=== PATIENT | male | born 1945 | race Caucasian/White ===

== ENCOUNTER → 2016-10-04 | Outpatient (CLI) | payer MEDICARE, OTHER | LOC: GMAJ 15:22 | PROVIDERS: ATTEND Family Medicine | DX: Z12.5 Encounter for screening for malignant neoplasm of prostate (principal) ==

== ENCOUNTER → 2017-01-09 | Outpatient (CLI) | payer MEDICARE, OTHER ==
--- NOTE | 2017-01-09 17:36 | MRI ---
EXAM DESCRIPTION: Lumbar Spine w/o Contrast CLINICAL HISTORY: INTERVERTEBRAL DISC DISPLACEMENT, LUMBOSACRAL REGION COMPARISON: None Available. TECHNIQUE: MRI of the lumbar spine is performed according to our usual protocol with axial and sagittal multi sequence imaging. FINDINGS: MR of the lumbar spine demonstrates moderate dextroscoliosis of the spine with tiny amount of retrolisthesis at the L4-5 level with multilevel advanced degenerative disc narrowing. A large upper pole and moderate lower pole left renal cyst is evident with additional smaller cysts noted on the right. No aortic aneurysm is seen and subcutaneous edema in the posterior soft tissues is apparent. Mild symmetric annular bulge at T11-12 and normal disc contour at T12-L1 is present. Significant marrow edema or destructive process is not apparent. The conus is positioned at the inferior L1 level without intradural or intramedullary abnormality. Extensive prior surgery posteriorly in the midline with decompression of the thecal sac from the lower L2 level to the upper sacrum is noted. L1-2: Disc desiccation with annular bulge and adequate canal with right greater than left facet arthropathy with adequate left and right neural foramina. L2-3: Disc degeneration with posterior decompressive laminectomy with advanced bilateral facet arthropathy left greater than right moderate right and severe left L2 foraminal narrowing on a multifactorial basis. A modest annular bulge is evident. L3-4: Severe disc degeneration with a tiny amount of retrolisthesis with annular bulge and very small central disc protrusion satisfactory decompression of the central canal with prior laminotomy. Moderately severe left and right L3 foraminal stenosis from residual facet disease. L4-5: Severe disc degeneration and narrowing with annular bulge and prior decompressive laminotomy with adequate central canal and broad-based disc bulge with severe right and moderate left foraminal stenosis from residual facet disease. L5-S1: Disc degeneration and narrowing with right greater than left facet arthropathy with adequate central canal and annular bulge with moderate right L5 foraminal stenosis and adequate left L5 neural foramen. IMPRESSION: 1. Near-anatomic alignment of the spine with minimal retrolisthesis at L3-4 and L4-5 with wide decompressive laminectomy from the inferior L2 level to upper sacrum without significant central stenosis at any level. Marked multilevel disc degeneration is present. 2. Multilevel bilateral foraminal stenosis, worse on the right at L5 and L4 and on the left at L2 and L3. 3. Small central disc protrusion at C3-4 without lateralizing changes to the right or left. Electronically signed by: Be Dias MD 01/09/2017 5:34 PM CDT
== END | disposition home or self-care (01) ==
LOC: MRI 08:11
PROVIDERS: ATTEND Family Medicine
DX: M51.27 Other intervertebral disc displacement, lumbosacral region (principal)

== ENCOUNTER → 2017-02-25 | Outpatient (CLI) | payer MEDICARE, OTHER | END | disposition home or self-care (01) | LOC: YCFC.O 11:35 | PROVIDERS: ATTEND Anesthesiology Pain Medicine | DX: Z79.891 Long term (current) use of opiate analgesic (principal) ==

== ENCOUNTER → 2017-03-29 | Outpatient (CLI) | payer MEDICARE, OTHER ==
--- NOTE | 2017-03-29 12:18 | CT ---
EXAM DESCRIPTION: Abdoment/Pelvis w/o Contrast CLINICAL HISTORY: DIVERTICULITIS K57.32 abdominal pain COMPARISON: None. TECHNIQUE: Noncontrast transaxial CT images of the abdomen and pelvis are obtained. This exam was performed according to our departmental dose-optimization program, which includes automated exposure control, adjustment of the mA and/or kV according to patient size and/or use of iterative reconstruction technique . FINDINGS: The visualized lung bases show no acute findings. The heart is enlarged. Vascular calcifications are noted. Liver is enlarged with heterogeneous decreased attenuation. The liver measures 18.7 cm. There are several less than 10 mm focal areas of decreased attenuation that are too small to adequately characterize, but likely represent cysts. The largest in the inferior right lobe measures 17 mm showing fluid attenuation. Given the limitations of a noncontrast exam the spleen, pancreas, adrenal glands, and gallbladder are unremarkable. Moderate atherosclerotic disease. Simple bilateral renal cortical cysts are seen. The largest in the upper pole left kidney measures 7.9 cm with midpole cyst measuring 4.8 cm. No significant nephrolithiasis or ureteral obstruction. Urinary bladder is contracted and unremarkable. Prostate is unremarkable. The appendix is within normal limits. No small bowel obstruction is seen. There are moderate scattered diverticuli of the colon. Mild bowel wall thickening and surrounding fat stranding associated with diverticuli in the descending to sigmoid colon of the left lower quadrant are seen. No drainable fluid collection or free intraperitoneal air is identified. No pathologic adenopathy is appreciated. Moderate to severe degenerative changes of the spine are seen. Postsurgical changes to the lumbar spine are seen. Dextrocurvature of the upper lumbar spine is seen. IMPRESSION: Colon diverticulosis with area of uncomplicated acute diverticulitis in the left lower quadrant. Hepatomegaly with diffuse fatty infiltration of the liver is seen. Several probable hepatic cysts are identified. Simple bilateral renal cortical cysts are seen. Other chronic findings as described above. Electronically signed by: Keaton Williamson MD 03/29/2017 12:16 PM CDT
== END | disposition home or self-care (01) ==
LOC: MRI 11:44
PROVIDERS: ATTEND Family Medicine
DX: K57.32 Diverticulitis of large intestine without perforation or abscess without bleeding (principal)

== ENCOUNTER 2017-04-15 05:44 | Day surgery (SDC) | payer MEDICARE, OTHER ==
[2017-04-15] MEDS ORDERED: SODIUM CHLORIDE 0.9% 10 ML VIAL ONE (11:33)
[2017-04-15] MEDS ORDERED: SODIUM BICARBONATE VIAL 50 MEQ/50 ML VIAL ONE (11:33)
[2017-04-15] MEDS ORDERED: methylPREDNISolone ACETATE 80 MG/ML VIAL ONE (11:33)
[2017-04-15] MEDS: LIDOCAINE 1% MPF 5 ML VIAL ONE ×2 (13:07→13:09)
[2017-04-15 14:22] VITALS: BP 167/93; TEMP 96.5; O2SAT 95
== END 2017-04-15 13:25 | disposition home or self-care (01) ==
LOC: AMB 05:44
PROVIDERS: ATTEND Anesthesiology Pain Medicine
DX: M51.16 Intervertebral disc disorders with radiculopathy, lumbar region (principal); M54.5 Low back pain
CPT/HCPCS: 62323; 76000; J1030

== ENCOUNTER → 2017-05-28 | Outpatient (CLI) | payer MEDICARE, OTHER | END | disposition home or self-care (01) | LOC: LAB.O 10:21 | PROVIDERS: ATTEND Internal Medicine Gastroenterology | DX: K57.92 Diverticulitis of intestine, part unspecified, without perforation or abscess without bleeding (principal); K76.0 Fatty (change of) liver, not elsewhere classified ==

== ENCOUNTER 2017-11-06 09:52 | Emergency (ER) | payer MEDICARE, OTHER ==
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
[2017-11-06 10:11] VITALS: TEMP 96.6
[2017-11-06] MEDS ORDERED: NEOMYCIN-BACITRACIN-POLYMYXIN 0.9 GM UD TOP ONE ×2 (10:17→10:35)
[2017-11-06] MEDS ORDERED: CHLORHEXIDINE GLUCONATE 4 % 15 ML UD TOP ONE ×2 (10:17→10:35)
[2017-11-06] MEDS ORDERED: LIDOCAINE 1% 10 ML VIAL INJ ONE (10:18)
[2017-11-06] MEDS: SULFA/TRIMETH 800/160 (DS) TAB 1 EA TAB PO ONE (10:19)
[2017-11-06] MEDS: TETANUS,DIPHTHERIA,PERTUSSIS 1 EA SYG IM ONE (10:20)
--- NOTE | 2017-11-06 10:27 | CT ---
EXAM DESCRIPTION: Head CLINICAL HISTORY: fall left forehead lac COMPARISON: None available TECHNIQUE: Contiguous axial images through the head were obtained without intravenous contrast administration. Sagittal and coronal reconstructions were reviewed. FINDINGS: Moderate periventricular white matter ischemia and moderate diffuse cortical volume loss is noted. No evidence of acute major vascular territorial infarct or intraparenchymal hemorrhage. No intra-axial or extra-axial fluid collections are identified. The ventricles and cisterns appear normal in caliber. The sella and suprasellar regions appear normal. The structures of the posterior fossa are intact. The globes are intact bilaterally. The visualized paranasal sinuses and mastoid air cells are well-aerated. Review of the bones demonstrates no gross instability. IMPRESSION: No CT evidence of acute intracranial process. This exam was performed according to our departmental dose-optimization program, which includes automated exposure control, adjustment of the mA and/or kV according to patient size and/or use of iterative reconstruction technique. Electronically signed by: Miguelina Patel MD 11/06/2017 10:26 AM CDT
[2017-11-06 11:23] VITALS: BP 158/73; O2SAT 98
== END 2017-11-06 11:23 | disposition home or self-care (01) ==
LOC: ER 09:52
DX: S01.112A Laceration without foreign body of left eyelid and periocular area, initial encounter (principal); Z23 Encounter for immunization; I48.91 Unspecified atrial fibrillation; I10 Essential (primary) hypertension; K21.9 Gastro-esophageal reflux disease without esophagitis; Z79.82 Long term (current) use of aspirin; W01.0XXA Fall on same level from slipping, tripping and stumbling without subsequent striking against object, initial encounter; Y92.414 Local residential or business street as the place of occurrence of the external cause

== ENCOUNTER 2018-07-23 12:14 | Emergency (ER) | payer OTHER ==
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
[2018-07-23 13:37] VITALS: BP 144/77; TEMP 97.4; O2SAT 96
== END 2018-07-23 13:39 | disposition home or self-care (01) ==
LOC: ER 12:14
DX: S63.642A Sprain of metacarpophalangeal joint of left thumb, initial encounter (principal); S16.1XXA Strain of muscle, fascia and tendon at neck level, initial encounter; I10 Essential (primary) hypertension; K21.9 Gastro-esophageal reflux disease without esophagitis; Z79.82 Long term (current) use of aspirin; Z79.899 Other long term (current) drug therapy; V49.40XA Driver injured in collision with unspecified motor vehicles in traffic accident, initial encounter; Y92.410 Unspecified street and highway as the place of occurrence of the external cause

== ENCOUNTER 2018-09-25 09:26 | Emergency (ER) | payer MEDICARE, OTHER ==
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
[2018-09-25] MEDS: SODIUM CHLORIDE 0.9% 500ML 500 ML IVS ONE (10:02)
--- NOTE | 2018-09-25 10:18 | CT ---
EXAM DESCRIPTION: Head CLINICAL HISTORY: AMS COMPARISON: 11/06/2017 TECHNIQUE: Multiple axial images of the head without contrast. Multiplanar reformatted images. This exam was performed according to our departmental dose-optimization program, which includes automated exposure control, adjustment of the mA and/or kV according to patient size and/or use of iterative reconstruction technique. FINDINGS: There is no CT evidence of intracranial hemorrhage, mass effect, or large territory infarction. Mild generalized volume loss. Mild patchy supratentorial white matter hypodensities. Chronic lacunar infarct in the left basal ganglia again demonstrated. Normal variant cavum septum lucidum. There are no abnormal extra-axial fluid collections. Calcific plaque in the visualized arteries. There is no acute calvarial defect. The visualized paranasal sinuses and the mastoids are clear. IMPRESSION: 1. No CT evidence of an acute intracranial abnormality. If there is concern for an acute or subacute infarct, consider follow-up MRI. 2. Mild senescent changes. Electronically signed by: Rommel Lewis MD 09/25/2018 10:15 AM CDT
--- NOTE | 2018-09-25 10:37 | RAD ---
EXAM DESCRIPTION: Chest,1 View CLINICAL HISTORY: 72 years Male, ams COMPARISON: 09/18/2014 IMPRESSION: The heart is enlarged, without failure. Mild subsegmental bibasilar atelectasis or scarring. No confluent airspace consolidation, pleural effusion, or pneumothorax. No acute osseous abnormality. Electronically signed by: Rommel Lewis MD 09/25/2018 10:35 AM CDT
[2018-09-25] MEDS ORDERED: MEROPENEM 500 MG VIAL IVPB ONE (10:45)
[2018-09-25] MEDS ORDERED: SODIUM CHLORIDE 0.9% 50ML 50 ML ONE (10:46)
[2018-09-25] MEDS: MEROPENEM 1 GM in SODIUM CHL 0.9% 50ML MIN-BAG+ 50 ML IVPB ONE (11:16)
--- NOTE | 2018-09-25 11:40 | US ---
EXAM DESCRIPTION: Abdomen,Complete: Ultrasound. CLINICAL HISTORY: pyuria COMPARISON: None Available. TECHNIQUE: Transabdominal scannin-dimensional and Doppler modes. FINDINGS: Gallbladder: Normal size and echogenicity with no intraluminal stones or sludge. 1.3 cm wall thickness with no surrounding fluid. Nontender with transducer pressure. Common bile duct: 3 mm normal caliber. Liver: Long axis of the right lobe 20.4 cm. Increased echogenicity but no focal lesions. Normal direction flow in the portal vein and normal caliber. No intrahepatic biliary dilation. Smooth capsule with no ascites. . Hepatic cyst 1.8 x 1.6 cm. Pancreas: Pancreas not well seen due to intestinal gas. Pancreatic duct not dilated.. Abdominal aorta: Anterior segment not well seen due to intestinal gas. Normal caliber of the segment in the distal segment to the bifurcation. IVC: visualized; normal caliber. Spleen normal echogenicity; long axis measurement is 11.0 cm. Right kidney: 12.8 cm long axis with intrarenal cyst 1.8 x 1.7 cm. Normal cortical thickness and echogenicity. No hydronephrosis, large echogenic stone, or perirenal fluid. Left kidney: 2 large cysts, 8 x 7.5 cm and 5.3 x 4.3 cm. Normal cortical thickness and echogenicity. No hydronephrosis, large echogenic stone or perirenal fluid. IMPRESSION: 1. Enlarged liver with steatosis. Normal vascularity and ducts. 1.8 cm cyst but no focal solid lesions. Smooth capsule with no ascites. 2. Gallbladder and common bile duct and spleen are unremarkable. 3. 2 large cysts on the left kidney otherwise unremarkable. Intrarenal cyst in the right kidney, otherwise unremarkable. Electronically signed by: Juni Kelley MD 09/25/2018 11:38 AM CDT
[2018-09-25 12:12] VITALS: BP 176/98; TEMP 97.1; O2SAT 96
== END 2018-09-25 12:12 | disposition home or self-care (01) ==
LOC: ER 09:26
DX: R40.4 Transient alteration of awareness (principal); N39.0 Urinary tract infection, site not specified; K76.0 Fatty (change of) liver, not elsewhere classified; N28.1 Cyst of kidney, acquired; N40.1 Benign prostatic hyperplasia with lower urinary tract symptoms; I10 Essential (primary) hypertension; K21.9 Gastro-esophageal reflux disease without esophagitis; Z79.899 Other long term (current) drug therapy
CPT/HCPCS: 36415; 70450; 71045; 76700; 80048; 80076; 80307; 80320; 81001; 82550; 82553; 83605; 83880; 84443; 84484; 85025; 85610; 85730; 87077; 87086; 87186; A4216; J2185; J7040

== ENCOUNTER → 2019-02-24 | Outpatient (CLI) | payer MEDICARE, OTHER ==
--- NOTE | 2019-02-24 08:53 | MRI ---
MR LUMBAR SPINE WITHOUT IV CONTRAST HISTORY: 73 years Male NEUROGENIC CLAUDICATION COMPARISON: January 09, 2017; CT abdomen and pelvis dated March 29, 2017. TECHNIQUE: Multiplanar multisequence MR imaging of the lumbar spine was performed without the use of intravenous contrast. FINDINGS: There 5 lumbar-type vertebral bodies. The most inferior disc space is designated as L5-S1. L3-L5 laminectomy changes again noted. Grade 1 retrolisthesis at L2-L3, L3-L4, and L4-L5. Moderate scoliotic curvature again noted. Vertebral body heights are maintained. Fat signal lesion in the left lateral aspect of the L4 vertebral body is again demonstrated, compatible with an intraosseous hemangioma. Modic type II degenerative marrow signal changes are scattered throughout the lumbar spine. No evidence of a pathologic marrow infiltrative process. Included cord and caudal roots demonstrate normal morphology and MR signal. Conus terminates at L1. Limited evaluation of the included regional soft tissues and viscera demonstrates no acute abnormalities. Redemonstration of a large right renal cyst, partially imaged on today's study. Intervertebral levels: L1-L2: Moderate disc desiccation and disc height loss. 3 mm right subarticular/foraminal disc osteophyte complex. No central canal stenosis. Moderate bilateral facet arthrosis and ligamentum flavum hypertrophy. Mild right lateral recess stenosis. No significant neuroforaminal stenosis. L2-L3: Severe disc desiccation and disc height loss. 5 mm broad-based posterior disc osteophyte complex. No central canal stenosis. Moderate bilateral facet arthrosis. Mild right and moderate left lateral recess stenosis. Mild right and moderate left neuroforaminal stenosis. L3-L4: Severe disc desiccation and disc height loss. 8 mm broad-based posterior disc bulge. T2/STIR hyperintense signal within the posterior annulus suggests annular fissure. Central canal decompressed. Severe bilateral facet arthrosis. Mild right and severe left lateral recess stenosis. Severe bilateral neuroforaminal stenosis. L4-L5: Severe disc desiccation and disc height loss. 4 mm broad-based posterior disc osteophyte complex. Central canal decompressed. Severe bilateral facet arthrosis. Moderate right lateral recess stenosis. Severe bilateral neuroforaminal stenosis. L5-S1: Severe disc desiccation and disc height loss. No central canal stenosis. Severe bilateral facet arthrosis. Severe right and mild left neuroforaminal stenosis. IMPRESSION: Severe multilevel degenerative disc disease and facet arthrosis. Redemonstrated L3-L5 laminectomy changes. Moderate scoliosis. Multilevel lateral recess and neuroforaminal stenosis, severe at multiple levels as detailed above. Electronically signed by: Wilder Sandhu MD 02/24/2019 8:52 AM CDT
== END ==
LOC: MRI 07:00
DX: G96.8 Other specified disorders of central nervous system (principal); M51.36 Other intervertebral disc degeneration, lumbar region; M41.86 Other forms of scoliosis, lumbar region; M48.061 Spinal stenosis, lumbar region without neurogenic claudication; Z98.890 Other specified postprocedural states

== ENCOUNTER 2019-11-17 | Emergency (ER) | payer MEDICARE, OTHER ==
--- NOTE | 2019-11-18 00:01 | ED.PDOC ---
History of Present Illness - General Chief Complaint: ENT Problem Stated Complaint: Nose bleed Time Seen by Provider: 11/17/19 13:45 Source: patient, RN notes reviewed, Vital Signs reviewed Exam Limitations: no limitations - History of Present Illness Initial Comments: Patient is a 74-year-old white male who presents with complaints of left epistaxis. Patient was sneezing and then started bleeding. His bleeding ceased on arrival here. Patient denies any pain or trauma except for the sneezing. The bleeding was constant. It was mild in intensity. There was no radiation. Bleeding worse with sneezing, resolved on its own. Timing/Duration: abrupt Severity: mild EENT Location: nose - Left nare Prearrival Treatment: no prearrival treatment Improving Factors: nothing Worsening Factors: other - Sneezing Associated Symptoms: denies symptoms Allergies/Adverse Reactions: Allergies NO KNOWN ALLERGY Allergy (Verified 11/17/19 13:57) Home Medications: Ambulatory Orders Celecoxib [Celebrex] 200 mg PO BID 09/18/14 Esomeprazole Magnesium [Nexium] 80 mg PO BID 09/18/14 Metoprolol Tartrate 50 mg PO BID 09/18/14 Naproxen Sodium [Aleve] 220 mg PO DAILY PRN 09/18/14 Tamsulosin [Flomax] 0.4 mg PO BID 09/18/14 Amiodarone HCl 200 mg PO DAILY 11/06/17 Ezetimibe-Simvastatin [Vytorin 10-40 mg] 1 tab PO DAILY 11/06/17 Sulfa/Trimeth 800/160 (Ds) Tab [Bactrim DS] 1 tablet PO BID 15 Days #30 tab 09/25/18 Tramadol HCl 50 mg PO Q6H PRN 09/25/18 Review of Systems - Review of Systems Constitutional: States: no symptoms reported, see HPI EENTM: States: see HPI, nose congestion - With associated left nares bleeding Respiratory: States: no symptoms reported Cardiology: States: no symptoms reported Gastrointestinal/Abdominal: States: no symptoms reported Genitourinary: States: no symptoms reported Musculoskeletal: States: no symptoms reported Skin: States: no symptoms reported Neurological: States: no symptoms reported Endocrine: States: no symptoms reported Hematologic/Lymphatic: States: no symptoms reported All other Systems: Reviewed and Negative, No Change from Baseline Past Medical History (General) - Patient Medical History Hx Seizures: No Hx Stroke: No Hx Dementia: No Hx Asthma: No Hx of COPD: No Hx Cardiac Disorders: No Hx Congestive Heart Failure: No Hx Pacemaker: No Hx Hypertension: Yes Hx Thyroid Disease: No Hx Diabetes: No Hx Gastroesophageal Reflux: Yes Hx Renal Disease: No Hx Cancer: No Hx of HIV: No Hx Hepatitis C: No Hx MRSA: No - Vaccination History Hx Tetanus, Diphtheria Vaccination: Yes Hx Influenza Vaccination: Yes Hx Pneumococcal Vaccination: Yes - Social History Hx Tobacco Use: No Hx Alcohol Use: Yes Hx Substance Use: No Hx Substance Use Treatment: No Hx Depression: No Hx Physical Abuse: No Hx Emotional Abuse: No Hx Suspected Abuse: No Family Medical History - Family History Mother Family History: Unknown Living Status: Unknown Hx Family Asthma: Yes - dad-copd Hx Cardiac Disease: Yes - brother-[place] Hx Family;Other: mom-emotional problems Physical Exam - Physical Exam General Appearance: Alert, Comfortable, Well Developed, Well Groomed, Well Hydrated, Well Nourished Eye Exam: bilateral normal Ear Exam: bilateral ear: auricle normal Nasal Exam: dried blood - Left nare no active bleeding Throat Exam: normal mouth inspection, pharynx normal Neck: non-tender, full range of motion, supple, normal inspection Cardiovascular/Respiratory: regular rate, rhythm, no M/R/G, normal peripheral pulses, no JVD, normal breath sounds, no respiratory distress Abdominal Exam: non-tender, no organomegaly Neurologic: e commerce specialist II-XII nml as tested, no motor/sensory deficits, alert, normal mood/affect, oriented x 3 Skin Exam: normal color, warm/dry Progress - Progress Progress: Differential diagnosis: Anterior nosebleed, posterior nosebleed, nasal trauma, seasonal allergies among others. 11/18/19 00:03 This is a late entry. Initial chart was accidentally deleted. Patient left at approximately 2 PM. Patient to follow-up with his PCP for possible referral to ENT. I discussed the plan of care with the patient and he voiced understanding and agreement. - EKG/XRAY/CT CT Ordered: No Departure - Departure Clinical Impression: Epistaxis Seasonal rhinitis Qualifiers: Allergic rhinitis trigger: unspecified Qualified Code(s): J30.2 - Other seasonal allergic rhinitis Time of Disposition: 14:00 Disposition: Discharge to Home or Self Care Condition: Good Departure Forms: ED Discharge - Pt. Copy, Patient Portal Self Enrollment Instructions: Nosebleeds (DC) Diet: resume usual diet Activity: increase activity as tolerated Referrals: Sean Abrams MD [Primary Care Provider] - 1-5 Days Home Medications: Ambulatory Orders Celecoxib [Celebrex] 200 mg PO BID 09/18/14 Esomeprazole Magnesium [Nexium] 80 mg PO BID 09/18/14 Metoprolol Tartrate 50 mg PO BID 09/18/14 Naproxen Sodium [Aleve] 220 mg PO DAILY PRN 09/18/14 Tamsulosin [Flomax] 0.4 mg PO BID 09/18/14 Amiodarone HCl 200 mg PO DAILY 11/06/17 Ezetimibe-Simvastatin [Vytorin 10-40 mg] 1 tab PO DAILY 11/06/17 Sulfa/Trimeth 800/160 (Ds) Tab [Bactrim DS] 1 tablet PO BID 15 Days #30 tab 09/25/18 Tramadol HCl 50 mg PO Q6H PRN 09/25/18
== END 2019-11-17 14:11 | disposition home or self-care (01) ==